=== PATIENT | female | born 1960 | race Caucasian/White ===

== ENCOUNTER 2017-10-23 18:04 | Emergency (ER) | payer SELFPAY ==
[2017-10-23] MEDS ORDERED: D5/0.45NS 1,000 ML IV ONE (18:54)
== END 2017-10-23 18:05 | disposition left against medical advice (07) ==
LOC: ED 18:04
DX: Z53.21 Procedure and treatment not carried out due to patient leaving prior to being seen by health care provider (principal)

== ENCOUNTER 2017-12-17 22:29 | Emergency (ER) | payer SELFPAY ==
[2017-12-17 22:58] VITALS: BP 156/69
== END 2017-12-18 04:15 | disposition left against medical advice (07) ==
LOC: ED 22:29
DX: R07.9 Chest pain, unspecified (principal); Z53.21 Procedure and treatment not carried out due to patient leaving prior to being seen by health care provider
CPT/HCPCS: 93005; 93010

== ENCOUNTER 2018-01-10 07:35 | Emergency (ER) | payer SELFPAY ==
--- NOTE | 2018-01-10 08:04 | Emergency Department Report ---
Chief Complaint: Dizziness Stated Complaint: DIZZY/HEADACHE - HPI History of Present Illness: 57-year-old female past medical history diabetes hypertension, history of SC presents with 3 days of worsening dizziness with associated headache. Denies chest pain or palpitations but does state that she feels somewhat weak and off balance. Patient is awake alert and oriented 3. Denies dysuria or hematuria or increased urinary frequency. Patient states that she has felt so dizzy she has fallen several times at home this week within the last 3 days. - ROS Review of Systems: 3 days of intermittent dizziness&pre syncopal episodes - Exam Vital Signs: Vital Signs 01/10/18 07:48 Temperature 98.3 F Pulse Rate 88 Respiratory 18 Rate Blood Pressure 133/79 O2 Sat by Pulse 98 Oximetry MSE screening note: Focused history and physical exam performed. Due to findings the following was ordered: Screening Assessment/Plan/Differential Dx: Dizziness, presyncope 1- This initial assessment/diagnostic orders/clinical plan/ treatment(s) is/are subject to change based on pt's health status, clinical progression and re- assessment by fellow clinical providers in the ED. Further treatment and workup at subsequent clinical provers discretion. Patient/guardians urged not to elope from ED as their condition may be serious if not clinically assessed and managed. 2-basic labs, EKG, noncontrast head CT, urinalysis 3-to be seen in the main ED as she has multiple risk factors for cardiovascular and neurological disease 4-orthostatic vital signs ED Disposition for MSE Condition: Stable
--- NOTE | 2018-01-10 08:39 | Cat Scan Report ---
CT HEAD WITHOUT CONTRAST: HISTORY: Weakness, dizziness. TECHNIQUE: Sequential 2.5mm CT images. COMPARISON: none. FINDINGS: Cerebral Parenchyma: Within normal limits. Cerebellum: Within normal limits. Brainstem: Within normal limits. Ventricles: Normal. Sella: Normal. Extra-axial spaces: Normal. Basal Cisterns: Normal. Intracranial Hemorrhage: None. Midline Shift: None. Calvarium: Normal. Sinuses: Normal. Mastoid Air Cells: Normal. Visualized Orbits: Normal. IMPRESSION: Cranial CT scan within normal limits.
[2018-01-10 08:40] VITALS: BP 136/68
[2018-01-10 08:44] LABS: BUN/Creatinine Ratio 20; Blood Urea Nitrogen 14 mg/dL (7-17); Calcium 9.3 mg/dL (8.4-10.2); Hemolysis Index 9
[2018-01-10 08:48] LABS: Bacteria,Urine 2+ /HPF (Negative); Bilirubin,Urine NEG (Negative); Blood,Urine NEG (Negative); Color,Urine Yellow (Yellow); Mucus,Urine FEW /HPF; Urobilinogen,Urine < 2.0 mg/dL (<2.0)
[2018-01-10 09:02] LABS: Basophils % (Auto) 0.4 % (0.0-1.8); Eosinophils # (Auto) 0.2 K/mm3 (0.0-0.4); Eosinophils % (Auto) 2.6 % (0.0-4.3); Hematocrit 42.4 % (30.3-42.9); Lymphocytes # (Auto) 2.5 K/mm3 (1.2-5.4); Lymphocytes % (Auto) 31.9 % (13.4-35.0); Mean Corpuscular HGB Conc 33 % (30-34); Mean Corpuscular Hemoglobin 29 pg (28-32); Mean Corpuscular Volume 86 fl (79-97); Monocytes # (Auto) 0.4 K/mm3 (0.0-0.8); Monocytes % (Auto) 5.5 % (0.0-7.3); Platelet Count 194 K/mm3 (140-440); Red Blood Count 4.92 M/mm3 (3.65-5.03)
--- NOTE | 2018-01-10 09:44 | Emergency Department Report ---
ED Dizziness HPI - General Chief Complaint: Dizziness Stated Complaint: DIZZY/HEADACHE Time Seen by Provider: 01/10/18 09:20 Source: patient Mode of arrival: Ambulatory Limitations: No Limitations - History of Present Illness Initial Comments: 87-year-old female that presents emergency room with complaints of dizziness, nausea, headache 3 days patient also complains of right ear pain. Patient states he feels like the room is spinning. Patient denies chest pain shortness of breath. Patient denies fever and chills. Patient denies bodyaches. Patient denies abdominal pain. MD Complaint: dizziness, lightheadedness -: Sudden, days(s) (3 day) Timing: sudden onset Description: "room spinning", lightheadedness History of Same: No History of Trauma: No Severity: severe Improves With: remaining still, rest Worsens With: movement, exertion Associated Symptoms: denies: ataxia, chest pain, confusion, cough, diaphoresis, fever/chills, loss of appetite, malaise, rash, seizure, shortness of breath, syncope, weakness - Related Data Previous Rx's Medication Instructions Recorded Last Taken Type Fluticasone [Flonase] 2 spray NS QDAY 30 Days #1 bottle 01/10/18 Unknown Rx Ibuprofen 800 mg PO Q8HR PRN #20 tablet 01/10/18 Unknown Rx Sulfamethoxazole/Trimethoprim 1 each PO BID 10 Days #20 tablet 01/10/18 Unknown Rx [Bactrim DS TAB] Allergies Allergy/AdvReac Type Severity Reaction Status Date / Time No Known Allergies Allergy Unverified 12/17/17 22:58 ED Review of Systems ROS: Stated complaint: DIZZY/HEADACHE Other details as noted in HPI Comment: All other systems reviewed and negative Constitutional: denies: chills, fever Eyes: denies: eye pain, eye discharge, vision change ENT: ear pain. denies: throat pain Respiratory: denies: cough, shortness of breath, wheezing Cardiovascular: denies: chest pain, palpitations Endocrine: no symptoms reported Gastrointestinal: nausea. denies: abdominal pain, diarrhea Genitourinary: denies: urgency, dysuria, discharge Musculoskeletal: denies: back pain, joint swelling, arthralgia Skin: denies: rash, lesions Neurological: headache. denies: weakness, paresthesias Psychiatric: denies: anxiety, depression Hematological/Lymphatic: denies: easy bleeding, easy bruising ED Past Medical Hx - Past Medical History Previous Medical History?: Yes Hx Heart Attack/AMI: Yes (2012, no stents) Hx Diabetes: Yes Hx Asthma: Yes Additional medical history: hyperthyroidism - Surgical History Past Surgical History?: No - Family History Family history: hypertension - Social History Smoking Status: Current Every Day Smoker Substance Use Type: None - Medications Home Medications: Home Medications Medication Instructions Recorded Confirmed Last Taken Type Fluticasone [Flonase] 2 spray NS QDAY 30 Days #1 bottle 01/10/18 Unknown Rx Ibuprofen 800 mg PO Q8HR PRN #20 tablet 01/10/18 Unknown Rx Sulfamethoxazole/Trimethoprim 1 each PO BID 10 Days #20 tablet 01/10/18 Unknown Rx [Bactrim DS TAB] ED Physical Exam - General Limitations: No Limitations General appearance: alert, in no apparent distress - Head Head exam: Present: atraumatic, normocephalic - Eye Eye exam: Present: normal appearance - ENT ENT exam: Present: mucous membranes moist - Expanded ENT Exam Expanded TM/Canal exam: Erythema: Left TM, Bulging: Right TM, Effusion: Left TM Throat exam: Positive: normal inspection - Neck Neck exam: Present: normal inspection - Respiratory Respiratory exam: Present: normal lung sounds bilaterally. Absent: respiratory distress - Cardiovascular Cardiovascular Exam: Present: regular rate, normal rhythm. Absent: systolic murmur, diastolic murmur, rubs, gallop - GI/Abdominal GI/Abdominal exam: Present: soft, normal bowel sounds - Extremities Exam Extremities exam: Present: normal inspection - Back Exam Back exam: Present: normal inspection - Neurological Exam Neurological exam: Present: alert, oriented X3 - Psychiatric Psychiatric exam: Present: normal affect, normal mood - Skin Skin exam: Present: warm, dry, intact, normal color. Absent: rash ED Course Vital Signs 01/10/18 01/10/18 01/10/18 07:48 08:30 08:39 Temperature 98.3 F 98.1 F Pulse Rate 88 79 78 Respiratory 18 14 18 Rate Blood Pressure 133/79 Blood Pressure 136/68 [Right] O2 Sat by Pulse 98 95 96 Oximetry ED Medical Decision Making - Lab Data Result diagrams: 01/10/18 08:02 01/10/18 08:02 - EKG Data -: EKG Interpreted by Me EKG shows normal: sinus rhythm Rate: normal - EKG Data Interpretation: normal EKG - Radiology Data Radiology results: report reviewed CT head no acute findings - Medical Decision Making Karen results and clinical impression with patient. Patient stable for discharge. Patient given discharge instructions. - Differential Diagnosis OE. OM. URI. Eustachian tube dysfunction. Dizziness. Headache. Nausea Critical care attestation.: If time is entered above; I have spent that time in minutes in the direct care of this critically ill patient, excluding procedure time. ED Disposition Clinical Impression: Otitis media, Headache, Dizziness, Nausea, UTI (urinary tract infection) Disposition: TO HOME OR SELFCARE Is pt being admited?: No Does the pt Need Aspirin: No (9) Condition: Stable Instructions: Vertigo (ED), Dizziness (ED), Otitis Media (ED) Additional Instructions: Patient to follow-up with primary care in 3-5 days. Patient to return to ER if condition worsens. Patient to see ENT and neurologist in 3-5 days. Patient to take Tylenol ibuprofen when necessary for pain. Patient increase water. Patient to rest. Patient take meds as directed. Prescriptions: Fluticasone [Flonase] 2 spray NS QDAY 30 Days #1 bottle Ibuprofen 800 mg PO Q8HR PRN #20 tablet PRN Reason: Pain Sulfamethoxazole/Trimethoprim [Bactrim DS TAB] 1 each PO BID 10 Days #20 tablet Referrals: PRIMARY CARE, [Primary Care Provider] - 3-5 Days Time of Disposition: 11:17
== END 2018-01-10 11:29 | disposition home or self-care (01) ==
LOC: ED 07:35
DX: H66.91 Otitis media, unspecified, right ear (principal); N39.0 Urinary tract infection, site not specified; J45.909 Unspecified asthma, uncomplicated; E11.9 Type 2 diabetes mellitus without complications; I21.9 Acute myocardial infarction, unspecified; F17.200 Nicotine dependence, unspecified, uncomplicated
CPT/HCPCS: 36415; 70450; 80048; 81001; 82550; 83735; 84484; 85025; 93005; 93010; 99284